=== PATIENT | female | born 1935 | race Caucasian/White ===

== ENCOUNTER 2016-09-19 08:54 | Day surgery (SDC) | payer MEDICARE, OTHER ==
[2016-09-12 12:22] LABS: HEMATOCRIT 45.7 % (36.0-47.0); HEMOGLOBIN 15.5 g/dL (12.0-15.5); HGB HCT DIFFERENCE 0.8; MEAN CORPUSCULAR HEMOGLOBIN 31.2 pg (27.0-33.4); MEAN CORPUSCULAR HGB CONC 33.9 g/dL (32.0-36.0); MEAN CORPUSCULAR VOLUME 92 fl (80-97); RED BLOOD COUNT 4.96 10^6/uL (3.72-5.28); RED CELL DISTRIBUTION WIDTH 14.2 % (11.5-14.0); WHITE BLOOD COUNT 5.9 10^3/uL (4.0-10.5)
[2016-09-12 12:46] LABS: ANION GAP 12 (5-19); BLOOD UREA NITROGEN 12 mg/dL (7-20); CALCIUM 9.6 mg/dL (8.4-10.2); CARBON DIOXIDE 24 mmol/L (22-30); CHLORIDE 106 mmol/L (98-107); CREATININE RESULT 0.58 mg/dL (0.52-1.25); GLUCOSE 92 mg/dL (75-110); POTASSIUM 4.4 mmol/L (3.6-5.0); SODIUM 142.3 mmol/L (137-145)
--- NOTE | 2016-09-12 13:40 | EKG REPORT ---
SEVERITY:- ABNORMAL ECG - SINUS RHYTHM NONSPECIFIC IVCD WITH LAD LEFT VENTRICULAR HYPERTROPHY : Confirmed by: Francisco Kyle MD 12-Sep-2016 13:40:17
[~2016-09-19 08:54] MED LIST: CEFAZOLIN 1 GM/D5W RTU 1 GM/50 ML RTUPB IV PRN; LACTATED RINGERS 1000 ML IV PRN; LIDOCAINE 0.5% INJ-PF (5 MG/ML) 50 ML SDV SUBCUT PRN; LIDOCAINE 1% INJ-PF (10 MG/ML) 30 ML SDV ONE
[2016-09-19] MEDS ORDERED: KETAMINE HCL INJ 500 MG/10 ML VIAL ONE (11:10)
[2016-09-19] MEDS ORDERED: PROPOFOL INJ 200 MG/20 ML VIAL IV ONE (11:11)
[2016-09-19] MEDS ORDERED: MIDAZOLAM 2 MG/2 ML INJ ONE (11:11)
[2016-09-19] MEDS ORDERED: MEPERIDINE HCL/PF INJ 25 MG/1 ML DISP.SYRIN IV PRN (12:13)
[2016-09-19] MEDS ORDERED: FENTANYL CITRATE INJ/PF 100 MCG/2 ML AMPUL IV PRN ×3 (12:13)
[2016-09-19] MEDS ORDERED: OXYCODONE-ACETAMINOPHEN 5-325 MG TABLET PO PRN ×2 (12:13)
[2016-09-19] MEDS ORDERED: MORPHINE SULFATE 10 MG/ML INJ IV PRN (12:13)
[2016-09-19] MEDS ORDERED: DIPHENHYDRAMINE HCL 50 MG/ML VIAL IV PRN (12:13)
[2016-09-19] MEDS ORDERED: PROMETHAZINE HCL INJ 25 MG/1 ML VIAL IV PRN ×2 (12:13)
[2016-09-19] MEDS ORDERED: MICROFIBRILLAR COLLAGEN 1 GM PACK ONE (12:22)
--- NOTE | 2016-09-19 12:52 | Operative Report ---
Operative Report DATE OF SURGERY: 09/19/16 PREOPERATIVE DIAGNOSIS: Mass, right breast, possible intraductal papilloma POSTOPERATIVE DIAGNOSIS: Same OPERATION: 1. Focused ultrasound directed open right breast biopsy. 2. Excision of additional fibrotic tissue right breast SURGEON: TREV DAVILA 1[employer] HELPER: MIYA DODSON ANESTHESIA: LMAC TISSUE REMOVED OR ALTERED: Right breast mass 2 COMPLICATIONS: None ESTIMATED BLOOD LOSS: scant INTRAOPERATIVE FINDINGS: See below PROCEDURE: The patient was seen in the preoperative holding area with her right breast was marked. She was then taken to the operating room where she was placed in the supine position right arm abducted white breast exposed, prepped and draped in a sterile fashion Surgical plan on surgical time out conducted. The right breast was scanned with the verbal frequency linear transducer. An area of hypoechogenicity with a central density was identified at the 10:30 position area will abort her right breast. We felt that this was the target tissue. The skin was anesthetized with 1% lidocaine plain. A radial incision was made approximately 4 cm in length attending across the areolar border at the 10:30 position. Mass of breast tissue was excised using a combination of sharp and electrocautery dissection. Ultrasound was used as a guide. The mass consisted of dilated duct, and some granular tissue distally. We terminated the resection centrally approximately 2 cm from the nipple . The mass was opened in 2 areas with a #[address] Hernández. 2 sutures were placed one long silk in the lateral position and a short silk suture in the superior position for orientation. The specimen was sent to pathology for permanent analysis Section inspection of the cavity revealed a fibrotic area laterally. A small wedge of tissue approximately 2 x 2 centimeters was excised with electrocautery and this was sent for frozen section to ensure no evidence of malignancy. Analysis by Dr. Lucero suggested fibrocystic disease. We felt the operation was complete. Sponge count correct. Hemostasis was achieved, and moist Avitene was placed into the recesses of the wound. The wound closed with 3-0 Vicryl, Dermabond glue and a compression dressing applied. Patient tolerated procedure well and taken to recovery in stable condition. The physician research lab assistant, Ms. Dodson, provided assistance during this case by: retracting tissue, instillation of local anesthesia and closure of skin incisions.
--- NOTE | 2016-09-19 12:56 | PDOC DISCHARGE SUMMARY ---
Discharge Summary (SDC) - Discharge Final Diagnosis: Right breast mass excision Date of Surgery: 09/19/16 Discharge Date: 09/19/16 Condition: Stable Forms: ASU Anesthesia D/C Instruction, Discharge POC-Surgical Service Treatment or Instructions: [facility] [address] [place], [place] [address] Care Instructions Following Your Breast Mass Excision Activities: Resume normal activities when you feel comfortable. It is best to remain as active as possible to speed your recovery. It is common to experience some fatigue after surgery and you may find that short naps are helpful. Avoid strenuous activity such as weight lifting, tennis, etc at your surgical site for two weeks. Perform gentle arm exercises daily and do not favor your operative arm to due increased risk of mobility issues postoperatively. No driving for 7 days after surgery. Do not drive if you are taking pain medication other than Tylenol or Ibuprofen. No swimming, tub baths or soaking in a hot tub for 4 weeks. There are no dietary restrictions. Do not smoke as this impairs wound healing. Surgical Site care: Remove your dressing 48 hours after surgery. Leave skin glue in place. You may shower after removing the dressing to include washing the wound with soap and water using your hands. Do not scrub the incision. Pat the area dry with a towel. You do not need to recover the wound although some patients find that they feel more comfortable using a light dressing for a few days to absorb any minimal drainage which may occur. Many patients also find that keeping a dressing around the drain exit site is helpful to absorb any drainage which may leak around the tubing. If you use a dressing in this manner change it at least every day. Do not use heating pad or apply an ice pack to the operative site. You may apply deodorant if you are careful to avoid getting it on the wound itself. Medications: Take Motrin (ibuprofen) 600 mg to 800 mg every 8 hours around the clock. You may taper this medication as you experience less pain. Take narcotic pain control such as Tylenol #3 or Percocet one to tablets every six hours as needed for breakthrough pain. Do not take over the counter Tylenol if you are taking either Tylenol #3 or Percocet. Again, you cannot drive while taking narcotic pain medication. Resume all of your normal prescription medications after your surgery unless instructed otherwise. You may experience constipation after surgery while taking pain medications. If using a narcotic on a regular basis, take a stool softener such as Colace twice a day. It is helpful to stay hydrated by drinking lots of fluids. Walking is also helpful and is good exercise after surgery. If you need extra help, use Milk of Magnesia according to the directions on the package. Follow-up: Call our office at to make a follow-up appointment in 10-14 days. Your doctor will call to discuss the pathology report with you as soon as it is available. Concerns: If you had a sentinel lymph node biopsy with your mastectomy, your urine may have a greenish discoloration. This is normal and will resolve as the blue dye slowly leaves your system. If you notice significant leakage around the drains , this is not normal. The drains may be clogged. Please call our office to come in immediately for the drains to be checked. Some bruising may occur and will go away over time. If you have a fever of 101.5 or greater, chills, redness at the incision site, excessive drainage from your wound or severe pain not relieved by pain medication, call your doctor. A physician is available 24 hours a day 7 days a week in addition to regular office hours. If problems arise after normal office hours please call the hospital at . Please call if you have any questions or concerns. Prescriptions: Acetaminophen with Codeine [Tylenol #3 Tablet] 1 each PO Q6HP PRN #15 tablet PRN Reason: Referrals: TREV DAVILA MD [ACTIVE STAFF] - Discharge Activity: Activity As Tolerated Report the Following to Your Physician Immediately: Fever over 101 Degrees, Unusual Bleeding, Redness, Swelling, Warmth, Drainage-Foul Smelling
[2016-09-19 14:30] VITALS: BP 137/78
== END 2016-09-19 14:45 | disposition home or self-care (01) ==
LOC: OROUT 08:54
PROVIDERS: ATTEND Surgery
PROC: 0HBT0ZX Excision of Right Breast, Open Approach, Diagnostic (ICD-10-PCS; principal; 2016-09-19 11:00)
DX: C50.911 Malignant neoplasm of unspecified site of right female breast (principal); M19.90 Unspecified osteoarthritis, unspecified site; Z96.642 Presence of left artificial hip joint; E55.9 Vitamin D deficiency, unspecified; Z96.653 Presence of artificial knee joint, bilateral; E78.00 Pure hypercholesterolemia, unspecified; Z86.79 Personal history of other diseases of the circulatory system; Z87.891 Personal history of nicotine dependence; Z88.8 Allergy status to other drugs, medicaments and biological substances; Z98.1 Arthrodesis status
CPT/HCPCS: 93005; 36415; 85027; 80048; 88342 ×2; 88341 ×2; 88307 ×2; 93010; 19101; J2250; J0690; J3490 ×3; J2704; 400

== ENCOUNTER 2016-11-28 07:51 | Inpatient (IN) | payer MEDICARE, OTHER ==
[2016-10-31 10:17] LABS: HEMATOCRIT 46.3 % (36.0-47.0); HEMOGLOBIN 15.6 g/dL (12.0-15.5); HGB HCT DIFFERENCE 0.5; MEAN CORPUSCULAR HEMOGLOBIN 31.1 pg (27.0-33.4); MEAN CORPUSCULAR HGB CONC 33.6 g/dL (32.0-36.0); MEAN CORPUSCULAR VOLUME 93 fl (80-97); RED CELL DISTRIBUTION WIDTH 13.8 % (11.5-14.0); WHITE BLOOD COUNT 5.1 10^3/uL (4.0-10.5)
[2016-10-31 10:43] LABS: ANION GAP 9 (5-19); BLOOD UREA NITROGEN 16 mg/dL (7-20); CALCIUM 9.5 mg/dL (8.4-10.2); CARBON DIOXIDE 26 mmol/L (22-30); CHLORIDE 106 mmol/L (98-107); CREATININE RESULT 0.64 mg/dL (0.52-1.25); GLUCOSE 107 mg/dL (75-110); POTASSIUM 4.4 mmol/L (3.6-5.0); SODIUM 141.3 mmol/L (137-145)
--- NOTE | 2016-10-31 13:38 | EKG REPORT ---
SEVERITY:- ABNORMAL ECG - SINUS RHYTHM NONSPECIFIC IVCD WITH LAD LEFT VENTRICULAR HYPERTROPHY : Confirmed by: Joanne Mcgraw 31-Oct-2016 13:37:32
[~2016-11-28 07:51] MED LIST changes: -LIDOCAINE 1% INJ-PF (10 MG/ML) 30 ML SDV ONE
[2016-11-28] MEDS ORDERED: KETOROLAC TROMETHAMINE 60 MG/2 ML SDV ONE (08:32)
[2016-11-28] MEDS ORDERED: ONDANSETRON HCL INJ/PF 4 MG/2 ML SDV ONE (08:32)
[2016-11-28] MEDS ORDERED: LIDOCAINE 2% INJ-PF (20 MG/ML) 10 ML AMPUL ONE (08:32)
[2016-11-28] MEDS ORDERED: SUCCINYLCHOLINE CHLORIDE INJ 200 MG/10 ML VIAL ONE (08:32)
[2016-11-28] MEDS ORDERED: DEXAMETHASONE SOD PHOSPHATE INJ 4 MG/1 ML VIAL ONE (08:32)
[2016-11-28] MEDS ORDERED: LIDOCAINE 1%/EPINEPHRINE INJ 20 ML VIAL ONE ×2 (10:30→14:37)
[2016-11-28] MEDS ORDERED: MICROFIBRILLAR COLLAGEN 1 GM PACK ONE ×2 (10:30→12:08)
[2016-11-28] MEDS ORDERED: MIDAZOLAM 2 MG/2 ML INJ ONE (12:06)
[2016-11-28] MEDS ORDERED: FENTANYL CITRATE INJ/PF 250 MCG/5 ML AMPULE ONE (12:06)
[2016-11-28] MEDS ORDERED: PROPOFOL INJ 200 MG/20 ML VIAL IV ONE (12:07)
[2016-11-28] MEDS ORDERED: MORPHINE SULFATE 10 MG/ML INJ ONE (12:07)
[2016-11-28] MEDS ORDERED: IBUPROFEN INJ 800 MG/8 ML VIAL IV ONE (12:07)
[2016-11-28] MEDS ORDERED: ACETAMINOPHEN 100 ML IV ONE (12:07)
[2016-11-28] MEDS ORDERED: PROMETHAZINE HCL INJ 25 MG/1 ML VIAL IV PRN ×2 (12:54)
[2016-11-28] MEDS ORDERED: FENTANYL CITRATE INJ/PF 100 MCG/2 ML AMPUL IV PRN ×3 (12:54)
[2016-11-28] MEDS ORDERED: DIPHENHYDRAMINE HCL 50 MG/ML VIAL IV PRN (12:54)
[2016-11-28] MEDS ORDERED: OXYCODONE-ACETAMINOPHEN 5-325 MG TABLET PO PRN ×3 (12:54→14:02)
[2016-11-28] MEDS ORDERED: MORPHINE SULFATE 10 MG/ML INJ IV PRN ×2 (12:54→14:02)
[2016-11-28] MEDS ORDERED: MEPERIDINE HCL/PF INJ 25 MG/1 ML DISP.SYRIN IV PRN (12:54)
[2016-11-28] MEDS ORDERED: RINGERS SOLUTION,LACTATED 1,000 ML IV PRN (14:02)
[2016-11-28] MEDS ORDERED: ONDANSETRON HCL INJ/PF 4 MG/2 ML SDV IV PRN (14:02)
[2016-11-28] MEDS ORDERED: DOCUSATE SODIUM 100 MG CAPSULE PO PRN (14:05)
--- NOTE | 2016-11-28 14:18 | OPERATIVE REPORT E ---
Operative Report NAME: ESTELITA QUINONES : 1935 AGE: 81Y DATE OF SURGERY: 11/28/2016 ROOM: PREOPERATIVE DIAGNOSES: 1. 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 2. Bilateral nipple discharge. POSTOPERATIVE DIAGNOSES: 1. 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 2. Bilateral nipple discharge. PROCEDURE: Bilateral mastectomies with chest wall drain placement. SURGEON: TREV DAVILA M.D. CVIR TECH: MOY Robins ANESTHESIA: General via endotracheal tube. COMPLICATIONS: None. ESTIMATED BLOOD LOSS: 75 mL. DRAINS: One large Clayton-Bacon on the right chest wall and a large Aurelio on the left. FINDINGS: See below. SUMMARY OF PROCEDURE: The patient was brought from the preop holding area to the main operating room where general anesthesia was induced. Arms were abducted, patient placed in the reversed Trendelenburg position, and markings made on the chest wall for bilateral mastectomies. We approached the right breast first which had known multifocal invasive carcinoma. A #10 blade was used to incise the skin in an elliptical fashion around the areolar complex. Superior and inferior skin flaps were raised to the appropriate thickness. The right breast was taken off the pectoralis muscle from the subclavicular region medially to the medial border of the pectoralis major muscle and inferiorly down to the serratus anterior muscle. The tail of Madhu was taken with the specimen as a unit. We did not perform axillary node sampling. Skin edges were trimmed with James scissors, large Clayton-Bacon drain placed in the right inframammary crease and secured to the skin with 2-0 Prolene suture and the skin edges approximated with 2-0 Vicryl suture and skin glue used to close the skin incision. The exact procedure was performed on the left side, except a Aurelio drain was placed in an inframammary fold. The patient tolerated the procedure well, extubated, and taken to recovery room in stable condition. DICTATING PHYSICIAN: TREV DAVILA M.D. [id number] PHY#: [id number] ID: [id number] JOB#: [id number] ACCT: [id number] cc:TREV DAVILA M.D. >
[2016-11-28] MEDS ORDERED: MEPERIDINE HCL/PF INJ 25 MG/1 ML DISP.SYRIN ONE (14:37)
[2016-11-28] MEDS ORDERED: FENTANYL CITRATE INJ/PF 100 MCG/2 ML AMPUL ONE (14:49)
[2016-11-29] MEDS ORDERED: MORPHINE SULFATE 10 MG/ML INJ IV PRN ×2 (10:59→15:00)
[2016-11-29] MEDS ORDERED: ONDANSETRON HCL INJ/PF 4 MG/2 ML SDV IV PRN ×2 (10:59→15:01)
--- NOTE | 2016-11-29 11:17 | PDOC PROGRESS REPORT ---
Subjective Progress Note for:: 11/29/16 Subjective:: Patient got up on her own, has voided. Some pain in her shoulders. Physical Exam Vital Signs: Temp Pulse Resp BP Pulse Ox 98.6 F 75 17 125/42 L 97 11/29/16 07:43 11/29/16 07:43 11/29/16 07:43 11/29/16 07:43 11/29/16 07:43 Intake & Output 11/28/16 11/29/16 11/30/16 06:59 06:59 06:59 Intake Total 1470 Output Total 1120 Balance 350 Weight 80 kg General appearance: PRESENT: no acute distress Respiratory exam: PRESENT: other - Bilateral mastectomy incisions satisfactorily ; drains with serosanguineous output. Severe bruising to superior flaps bilaterally Results Laboratory Results: 10/31/16 09:13 10/31/16 09:13 Assessment & Plan - Diagnosis (1) Carcinoma of right breast Is this a current diagnosis for this admission?: YesPlan: Status post bilateral mastectomy drain placement, postoperative day 1, no complications thus far Plan: 1. Hep-Lock IV, advance diet 2. We will get occupational therapy involved in exercising upper extremity 3. I spoke with discharge planning about patient's wish for short-term skilled facility post discharge from hospital and whether that is a viable option.
[2016-11-29] MEDS ORDERED: DOCUSATE SODIUM 100 MG CAPSULE PO PRN (15:00)
[2016-11-29] MEDS ORDERED: OXYCODONE-ACETAMINOPHEN 5-325 MG TABLET PO PRN (15:01)
[2016-11-29] MEDS ORDERED: RINGERS SOLUTION,LACTATED 1,000 ML IV PRN (15:03)
[2016-11-30 10:05] VITALS: BP 141/49
--- NOTE | 2016-12-04 07:03 | DISCHARGE SUMMARY E ---
Discharge Summary NAME: ESTELITA QUINONES : 1935 AGE: 81Y ADMITTED: 11/29/2016 DISCHARGED: 11/30/2016 REASON FOR ADMISSION: Right breast carcinoma. SUMMARY OF HOSPITALIZATION: The patient is an 81-year-old white female with a diagnosis of bilateral nipple discharge and right breast carcinoma status post open right breast biopsy. She was brought in to ambulatory surgery for bilateral mastectomy with drain placement. The procedure was performed, dictated separately. Postoperatively, the patient did well, had no complications. Discharge planning was involving with coordinating home health on an outpatient basis. 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 DISPOSITION: The patient was discharged home to the care of her friend. She will follow up with Dr. Lyn in approximately 1 week. She has been instructed on drain care. Prescription for pain medication has been provided. DICTATING PHYSICIAN: TREV LYN M.D. [id number] Y#: [id number] ID: [id number] JOB#: [id number] ACCT: [id number] cc:TREV LYN M.D. >
== END 2016-11-30 11:25 | disposition home health service (06) | DRG 583 ==
LOC: OROUT 07:51 → 4N 15:31 → OROUT 11-29 13:42
PROVIDERS: ADMIT Surgery; ATTEND Surgery
PROC: 0W9800Z Drainage of Chest Wall with Drainage Device, Open Approach (ICD-10-PCS; 2016-11-28)
PROC: 0HTV0ZZ Resection of Bilateral Breast, Open Approach (ICD-10-PCS; principal; 2016-11-28 10:30)
DX: C50.911 Malignant neoplasm of unspecified site of right female breast (principal); N64.52 Nipple discharge; I10 Essential (primary) hypertension; E78.00 Pure hypercholesterolemia, unspecified; M19.90 Unspecified osteoarthritis, unspecified site; Z96.653 Presence of artificial knee joint, bilateral; Z96.642 Presence of left artificial hip joint; Z87.891 Personal history of nicotine dependence; Z86.12 Personal history of poliomyelitis; Z86.010 Personal history of colon polyps; Z17.0 Estrogen receptor positive status [ER+]
CPT/HCPCS: 36415; 400; 80048; 85027; 88307; 93005; 93010; J0131; J0330; J0690; J1100; J1741; J1885; J2175; J2250; J2270; J2405; J2704; J3010; J3490

== ENCOUNTER → 2017-02-11 | Outpatient (CLI) | payer MEDICARE, OTHER ==
--- NOTE | 2017-02-11 10:48 | WOMENS IMAGING REPORT ---
EXAM DESCRIPTION: BONE DENSITY HIP/SPINE COMPLETED DATE/TIME: 02/11/2017 8:51 am REASON FOR STUDY: OSTEOPROSIS; M81.0 M81.0 AGE-RELATED OSTEOPOROSIS W/O CURRENT PATHOLOGICAL FRAC COMPARISON: None. TECHNIQUE: Dual-Energy X-ray Absorptiometry (DEXA) of the AP Spine and Hip. LIMITATIONS: None. FINDINGS: LUMBAR SPINE: The bone mineral density (BMD) measured from L1-L4 in the AP projection correlates with a T-score of 1.9, which is normal as defined by the World Health Organization. HIP: The bone mineral density (BMD) measured in the left hip correlates with a T-score of -2.7, which is o steoporosis as defined by the World Health Organization. IMPRESSION: 1. LUMBAR SPINE: Normal 2. HIP: Osteoporosis COMMENT: The World Health Organization defines low BMD as follows: T-score: Normal: Greater than -1.0 Osteopenia: Between -1.0 and -2.5 Osteoporosis: Less than -2.5 without fractures Established osteoporosis: Less than -2.5 with fractures In general, you may wish to consider: Diagnosis Treatment Follow-up DEXA Normal BMD Prevention 2-3 years Osteopenia Prevention/Therapy 1-2 years Osteoporosis Therapy Yearly TECHNICAL DOCUMENTATION: JOB ID: [id number] [employer]- All Rights Reserved
== END ==
LOC: WI 08:48
PROVIDERS: ATTEND Internal Medicine
DX: M81.0 Age-related osteoporosis without current pathological fracture (principal)
CPT/HCPCS: 77080

== ENCOUNTER 2017-09-08 16:40 | Emergency (ER) | payer OTHER, MEDICARE ==
[2017-09-08] MEDS ORDERED: MORPHINE SULFATE 10 MG/ML INJ IM ONE (19:04)
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
[2017-09-08 22:47] VITALS: BP 130/64
== END 2017-09-08 22:45 | disposition home or self-care (01) ==
LOC: ER 16:40
DX: S10.91XA Abrasion of unspecified part of neck, initial encounter (principal); S20.212A Contusion of left front wall of thorax, initial encounter; R06.02 Shortness of breath; M25.561 Pain in right knee; V89.2XXA Person injured in unspecified motor-vehicle accident, traffic, initial encounter; E78.00 Pure hypercholesterolemia, unspecified; Z90.49 Acquired absence of other specified parts of digestive tract; Z90.710 Acquired absence of both cervix and uterus
CPT/HCPCS: 99284; 96372; 73564; 71101; 70450; 71250; 72125; J2270

== ENCOUNTER → 2019-02-13 | Outpatient (CLI) | payer MEDICARE, OTHER ==
--- NOTE | 2019-02-13 08:42 | WOMENS IMAGING REPORT ---
EXAM DESCRIPTION: BONE DENSITY HIP/SPINE COMPLETED DATE/TIME: 02/13/2019 8:21 am REASON FOR STUDY: M81.8 OTHER OSTEOPOROSIS W/O CURRENT PATHOLOGICAL FRACTURE M81.8 OTHER OSTEOPOROS IS WITHOUT CURRENT PATHOLOGICAL FRACTU COMPARISON: 02/11/2017 TECHNIQUE: Dual-Energy X-ray Absorptiometry (DEXA) of the AP Spine and Hip. LIMITATIONS: None. FINDINGS: LUMBAR SPINE: The bone mineral density (BMD) measured from L1-L4 in the AP projection correlates with a T-score of 2.6, which is normal as defined by the World Health Organization. HIP: The bone mineral density (BMD) measured in the left hip correlates with a T-score of -2.3, which is o steopenia as defined by the World Health Organization. IMPRESSION: 1. LUMBAR SPINE: NORMAL. Stable from prior study. 2. HIP: OSTEOPENIA. Slight improvement from prior study. COMMENT: The World Health Organization defines low BMD as follows: T-score: Normal: Greater than -1.0 Osteopenia: Between -1.0 and -2.5 Osteoporosis: Less than -2.5 without fractures Established osteoporosis: Less than -2.5 with fractures In general, you may wish to consider: Diagnosis Treatment Follow-up DEXA Normal BMD Prevention 2-3 years Osteopenia Prevention/Therapy 1-2 years Osteoporosis Therapy Yearly TECHNICAL DOCUMENTATION: JOB ID: [id number] [employer]- All Rights Reserved Reading location - IP/workstation name: [email or web address]
== END ==
LOC: WI 07:40
PROVIDERS: ATTEND Internal Medicine
DX: M81.8 Other osteoporosis without current pathological fracture (principal)
CPT/HCPCS: 77080

== ENCOUNTER → 2019-02-17 | Outpatient (CLI) | payer MEDICARE, OTHER ==
--- NOTE | 2019-02-17 12:38 | RADIOLOGY REPORT (SQ) ---
EXAM DESCRIPTION: MRI LT UPPER JOINT WITHOUT COMPLETED DATE/TIME: 02/17/2019 10:41 am REASON FOR STUDY: M75.122 COMPLETE ROTATR-CUFF TEAR/RUPTR OF LEFT SHOULDER, NOT TRAUMA M75.122 COMP LETE ROTATR-CUFF TEAR/RUPTR OF LEFT SHOULDER, NO COMPARISON: None. TECHNIQUE: Left shoulder images acquired and stored on PACS. Multiplanar imaging to include fat sens itive sequences such as T1, water sensitive sequences such as FST2/STIR, cartilage sensitive sequence s such as FSPD/gradient-echo sequences. LIMITATIONS: None. FINDINGS: BONE MARROW AND CORTEX: No worrisome bone lesions or marrow replacement. No occult fractur es. JOINT OR BURSAL EFFUSION: Large glenohumeral joint effusion with fluid tracking down the biceps tendo n sheath GLENO-HUMERAL ARTICULATION: [id number] osteoarthritis with bulky bony spurring along the inferior a spect of the humeral head. There are multiple intra-articular loose bodies in the axillary recess of the joint and along the subcoracoid recess ACROMION AND AC JOINT: Type 2 acromion with bulky acromioclavicular joint hypertrophy narrowing the subacromial space on sagittal image 9 and coronal image 9. ROTATOR CUFF AND INTERVAL: Diffuse thinning of the distal supra and infraspinatus tendons, with incre ased signal of the supraspinatus tendon at its attachment to the greater tuberosity. Subscapularis i s intact. No rotator interval tear. No rotator interval thickening to suggest adhesive capsulitis. LABRUM AND BICEPS LABRAL COMPLEX: Intra-articular long head biceps tendon is intact. Superior labr um is diffusely small. Remainder of the labrum is not seen PERIARTICULAR AND ADJACENT SOFT TISSUES: No masses or abnormal nodes. OTHER: No other significant finding. IMPRESSION: Advanced arthritis at the glenohumeral joint with jazc-[id number] appearance and multiple i ntra-articular loose Tendinopathy distal supra and infraspinatus tendons Acromioclavicular joint hypertrophy with narrowing of the subacromial space. TECHNICAL DOCUMENTATION: JOB ID: [id number] [employer]- All Rights Reserved Reading location - IP/workstation name: [email or web address]
== END ==
LOC: RAD 09:48
PROVIDERS: ATTEND Family Medicine
DX: M75.122 Complete rotator cuff tear or rupture of left shoulder, not specified as traumatic (principal); M19.012 Primary osteoarthritis, left shoulder

== ENCOUNTER → 2019-03-12 | Outpatient (CLI) | payer MEDICARE, OTHER ==
--- NOTE | 2019-03-12 13:35 | EKG REPORT ---
SEVERITY:- ABNORMAL ECG - SINUS RHYTHM LAD, CONSIDER LEFT ANTERIOR FASCICULAR BLOCK LA ABNORMALITY. : Confirmed by: Francisco Kyle MD 12-Mar-2019 13:34:52
--- NOTE | 2019-03-12 13:51 | RADIOLOGY REPORT (SQ) ---
EXAM DESCRIPTION: CHEST PA/LATERAL COMPLETED DATE/TIME: 03/12/2019 1:40 pm REASON FOR STUDY: PRE-OP COMPARISON: 12/01/2013 EXAM PARAMETERS: NUMBER OF VIEWS: two views TECHNIQUE: Digital Frontal and Lateral radiographic views of the chest acquired. RADIATION DOSE: NA LIMITATIONS: none FINDINGS: LUNGS AND PLEURA: No opacities, masses or pneumothorax. No pleural effusion. MEDIASTINUM AND HILAR STRUCTURES: No masses or contour abnormalities. HEART AND VASCULAR STRUCTURES: Heart normal size. No evidence for failure. BONES: No acute findings. HARDWARE: None in the chest. OTHER: No other significant finding. IMPRESSION: NO SIGNIFICANT RADIOGRAPHIC FINDING IN THE CHEST. TECHNICAL DOCUMENTATION: JOB ID: [id number] [employer]- All Rights Reserved Reading location - IP/workstation name: [email or web address]
[2019-03-12 14:02] LABS: ABSOLUTE EOSINOPHILS # (AUTO) 0.1 10^3/uL (0.0-0.6); ABSOLUTE LYMPHOCYTES (AUTO) 1.4 10^3/uL (0.5-4.7); ABSOLUTE MONOCYTES (AUTO) 0.6 10^3/uL (0.1-1.4); ABSOLUTE NEUT (AUTO) 3.8 10^3/uL (1.7-8.2); BASOPHILS % (AUTO) 0.7 % (0-2); EOSINOPHILS % (AUTO) 2.2 % (0-6); HEMATOCRIT 44.6 % (36.0-47.0); HEMOGLOBIN 15.2 g/dL (12.0-15.5); LYMPHOCYTES % (AUTO) 22.7 % (13-45); MEAN CORPUSCULAR HEMOGLOBIN 30.8 pg (27.0-33.4); MEAN CORPUSCULAR VOLUME 91 fl (80-97); MONOCYTES % (AUTO) 9.9 % (3-13); PLATELET COUNT 212 10^3/uL (150-450); RED BLOOD COUNT 4.92 10^6/uL (3.72-5.28); RED CELL DISTRIBUTION WIDTH 13.5 % (11.5-14.0); SEGMENTED NEUTROPHILS % (AUTO) 64.5 % (42-78); TOTAL CELLS COUNTED % (AUTO) 100 %
[2019-03-12 14:03] LABS: APPEARANCE,URINE CLOUDY; BILIRUBIN,URINE NEGATIVE (NEGATIVE); COLOR,URINE AMBER; GLUCOSE, URINE NEGATIVE (NEGATIVE); KETONES,URINE NEGATIVE (NEGATIVE); LEUKOCYTE ESTERASE,URINE NEGATIVE (NEGATIVE); NITRITE,URINE NEGATIVE (NEGATIVE); PROTEIN,URINE NEGATIVE (NEGATIVE); URINE SPECIFIC GRAVITY 1.018; UROBILINOGEN,URINE NEGATIVE mg/dL (<2.0)
[2019-03-12 14:24] LABS: ANION GAP 12 (5-19); BLOOD UREA NITROGEN 16 mg/dL (7-20); CALCIUM 9.5 mg/dL (8.4-10.2); CARBON DIOXIDE 24 mmol/L (22-30); CHLORIDE 104 mmol/L (98-107); GLUCOSE 108 mg/dL (75-110); POTASSIUM 4.4 mmol/L (3.6-5.0)
== END ==
LOC: OD 12:52
PROVIDERS: ATTEND Orthopaedic Surgery
DX: Z01.812 Encounter for preprocedural laboratory examination (principal); Z01.810 Encounter for preprocedural cardiovascular examination; Z01.811 Encounter for preprocedural respiratory examination
CPT/HCPCS: 36415; 71046; 80048; 81001; 85025; 93005; 93010

== ENCOUNTER 2019-04-06 06:36 | Inpatient (IN) | payer MEDICARE, OTHER ==
[~2019-04-06 06:36] MED LIST changes: +BUPIVACAINE INJ/PF LIPOSOME/PF 266 MG/20 ML SDV INJ PRN; -CEFAZOLIN 1 GM/D5W RTU 1 GM/50 ML RTUPB IV PRN; +CEFAZOLIN INJ 1 GM VIAL IV PRN; +CEFAZOLIN INJ 1 GM VIAL ONE; +IBUPROFEN 800 MG in NORMAL SALINE 250 ML IV PRN; +OXYCODONE HCL SR 10 MG TABLET PO ONE; +OXYCODONE HCL SR 10 MG TABLET PO PRN; +PANTOPRAZOLE SODIUM 20 MG TABLET.DR PO ONE; +PANTOPRAZOLE SODIUM 20 MG TABLET.DR PO PRN; +VANCOMYCIN HCL 1,000 MG in DEXTROSE 5%-WATER 250 ML IV PRN
[2019-04-06] MEDS ORDERED: DEXAMETHASONE SOD PHOSPHATE INJ 4 MG/1 ML VIAL ONE (06:39)
[2019-04-06] MEDS ORDERED: EPHEDRINE SULFATE INJ 50 MG/1 ML AMPULE ONE (06:39)
[2019-04-06] MEDS ORDERED: PROPOFOL INJ 200 MG/20 ML VIAL IV ONE (06:39)
[2019-04-06] MEDS ORDERED: ONDANSETRON HCL INJ/PF 4 MG/2 ML SDV ONE (06:39)
[2019-04-06] MEDS ORDERED: MIDAZOLAM 2 MG/2 ML INJ ONE (06:39)
[2019-04-06] MEDS ORDERED: FENTANYL CITRATE INJ/PF 100 MCG/2 ML AMPUL ONE ×2 (06:39→11:01)
[2019-04-06] MEDS ORDERED: LIDOCAINE 0.5% INJ-PF (5 MG/ML) 50 ML SDV ONE (06:43)
[2019-04-06] MEDS ORDERED: BUPIVACAINE HCL 0.25 % INJ/PF (2.5 MG/1 ML) 30 ML VIAL ONE (07:26)
[2019-04-06] MEDS ORDERED: BUPIVACAINE HCL 0.5%-EPI 1:200000 INJ/PF 30 ML VIAL ONE (08:29)
[2019-04-06] MEDS ORDERED: TRANEXAMIC ACID INJ/PF 1,000 MG/10 ML SDV ONE (08:59)
[2019-04-06] MEDS ORDERED: OXYCODONE-ACETAMINOPHEN 5-325 MG TABLET PO PRN (09:24)
[2019-04-06] MEDS ORDERED: MEPERIDINE HCL/PF INJ 25 MG/1 ML DISP.SYRIN IV PRN (09:24)
[2019-04-06] MEDS ORDERED: FENTANYL CITRATE INJ/PF 100 MCG/2 ML AMPUL IV PRN ×2 (09:24)
[2019-04-06] MEDS ORDERED: PROMETHAZINE HCL INJ 25 MG/1 ML VIAL IV PRN ×2 (09:24)
[2019-04-06] MEDS ORDERED: DIPHENHYDRAMINE HCL 50 MG/ML VIAL IV PRN (09:24)
[2019-04-06] MEDS ORDERED: MORPHINE SULFATE 10 MG/ML INJ IV PRN (09:24)
--- NOTE | 2019-04-06 10:28 | Operative Report ---
Operative Report DATE OF SURGERY: 04/06/19 PREOPERATIVE DIAGNOSIS: Left shoulder arthritis OPERATION: Left shoulder arthroplasty SURGEON: SHERIF VAUGHN ANESTHESIA: GA TISSUE REMOVED OR ALTERED: Humeral head to pathology ESTIMATED BLOOD LOSS: 25 PROCEDURE: Implants used: Travis reunion 52 mm glenoid [place] reunion size 14 modular humeral stem [place] reunion 52 x 23 mm eccentric humeral head With the patient in a beachchair position on the operative table left upper extremity and forequarter prepped and draped in sterile fashion. A standard deltopectoral approach the humerus was taken. The deltoid is retracted anteriorly and the underlying anterior shoulder capsule is exposed. The next layer proceeds up through the biceps tendon and subsequently a lesser tuberosity osteotomy was performed. This is developed and the underlying shoulder joint is exposed. The humeral shaft is reamed using hand cylindrical reamers until a 14 mm reamer is seated. Is subtotally broached until a 14 mm broach is seated. Next the glenoid is exposed. Soft tissue is cleared off the rim of the glenoid. A central PEG is placed into the glenoid and the glenoid face is reamed by hand. Subsequently glenoids prepared for a cemented 52 mm Travis reunion glenoid. This is subsequently cemented in place. Following adequate curing the cement the final 14 mm stem was impacted into position. Is trialed with a 52 mm humeral heads until a 23 mm eccentric head is used and felt to provide the best stability. This is now impacted into position. The wound is irrigated with pulse lavage and normal saline containing Betadine. The lesser tuberosity osteotomy is attempted to be repaired using FiberWire. The bone is of such poor quality vertically through the greater tuberosity that the suture pulled through this. Subsequently a soft tissue repair of the rotator cuff was performed. The remainder the wound is closed with interrupted Vicryl followed by Dermabond tape. A shoulder immobilizer was applied and the patient's return to the PACU in satisfactory condition.
[2019-04-06] MEDS ORDERED: ONDANSETRON 4 MG TAB.RAPDIS SL PRN (10:35)
[2019-04-06] MEDS ORDERED: BUPIVACAINE HCL 0.5%-EPI 1:200000 INJ/PF 30 ML VIAL INJ ONE (10:53)
[2019-04-06] MEDS: FENTANYL CITRATE INJ/PF 100 MCG/2 ML AMPUL IV PRN ×2 (11:02→11:16)
[2019-04-06] MEDS ORDERED: ACETAMINOPHEN 1,000 MG/100 ML RTUPB IV ONE (11:32)
[2019-04-06] MEDS: RINGERS SOLUTION,LACTATED 1,000 ML IV PRN ×2 (12:00→20:39)
[2019-04-06] MEDS ORDERED: ACETAMINOPHEN INJ/PF 1000 MG/100 ML SDV IV ONE (12:15)
[2019-04-06] MEDS: HYDROCODONE/ACETAMINOPHEN 5-325 MG TABLET PO PRN (15:03)
[2019-04-06] MEDS ORDERED: PHENYLEPHRINE HCL INJ/PF 10 MG/1 ML SDV ONE (15:27)
[2019-04-06] MEDS: ASPIRIN 81 MG TABLET, ENT COATED PO SCH (18:49)
[2019-04-06] MEDS ORDERED: VANCOMYCIN HCL 1,000 MG in DEXTROSE 5%-WATER 250 ML IV ONE (21:00)
[2019-04-07] MEDS: HYDROCODONE/ACETAMINOPHEN 5-325 MG TABLET PO PRN ×4 (03:15→21:59)
[2019-04-07 05:50] LABS: HEMATOCRIT 36.4 % (36.0-47.0); HEMOGLOBIN 12.4 g/dL (12.0-15.5); MEAN CORPUSCULAR HGB CONC 34.2 g/dL (32.0-36.0); MEAN CORPUSCULAR VOLUME 91 fl (80-97); PLATELET COUNT 190 10^3/uL (150-450); RED BLOOD COUNT 4.01 10^6/uL (3.72-5.28); RED CELL DISTRIBUTION WIDTH 13.9 % (11.5-14.0); WHITE BLOOD COUNT 10.7 10^3/uL (4.0-10.5)
[2019-04-07 06:07] LABS: BLOOD UREA NITROGEN 9 mg/dL (7-20); CALCIUM 8.4 mg/dL (8.4-10.2); GLUCOSE 136 mg/dL (75-110); POTASSIUM 4.2 mmol/L (3.6-5.0)
[2019-04-07 06:12] LABS: ANION GAP 5 (5-19); CARBON DIOXIDE 27 mmol/L (22-30); CHLORIDE 106 mmol/L (98-107)
--- NOTE | 2019-04-07 06:58 | PDOC PROGRESS REPORT ---
Subjective Progress Note for:: 04/07/19 Reason For Visit: LEFT SHOULDER ARTHRITIS 84-year-old white female now postop day 1 status post left shoulder replacement. Patient comfortable overnight. Physical Exam Vital Signs: Temp Pulse Resp BP Pulse Ox 36.7 C 88 19 129/58 H 94 04/07/19 00:01 04/07/19 00:01 04/07/19 00:01 04/07/19 00:01 04/07/19 00:01 Intake & Output 04/05/19 04/06/19 04/07/19 06:59 06:59 06:59 Intake Total 0 4196 Output Total 100 Balance 0 4096 Weight 83.8 kg Physical Exam: Overweight middle-aged white female lying flat in bed in minimal distress. Patient is alert, oriented, appropriate. General appearance: PRESENT: no acute distress, mild distress Head exam: PRESENT: normocephalic Respiratory exam: PRESENT: unlabored Cardiovascular exam: PRESENT: RRR Pulses: PRESENT: +1 pedal pulses bilateral Vascular exam: PRESENT: normal capillary refill GI/Abdominal exam: PRESENT: soft Rectal exam: PRESENT: deferred Extremities exam: PRESENT: other - Left shoulder dressing clean dry and intact. Distal neurovascular examination is intact. Neurological exam: PRESENT: alert, awake, oriented to person, oriented to place, oriented to time, oriented to situation. ABSENT: motor sensory deficit Psychiatric exam: PRESENT: appropriate affect, normal mood. ABSENT: homicidal ideation, suicidal ideation Skin exam: PRESENT: dry, intact, warm. ABSENT: cyanosis, rash Results Laboratory Results: 04/07/19 05:22 04/07/19 05:22 04/06/19 04/07/19 04/07/19 07:03 05:22 05:22 WBC 10.7 H RBC 4.01 Hgb 12.4 Hct 36.4 MCV 91 MCH 31.0 MCHC 34.2 RDW 13.9 Plt Count 190 Sodium 138.1 Potassium 4.2 Chloride 106 Carbon Dioxide 27 Anion Gap 5 BUN 9 Creatinine 0.50 L Est GFR ( Amer) > 60 Glucose 136 H Calcium 8.4 Blood Type O NEGATIVE Antibody Screen NEGATIVE Status: Imported from PACS Assessment & Plan - Diagnosis (1) Shoulder arthritis Is this a current diagnosis for this admission?: Yes Plan: 84-year-old white female status post left shoulder arthroplasty postop day 1 with no untoward events. X-ray was never completed yesterday has been reordered today. Patient be out of bed with physical therapy and work with occupational therapy. Anticipate discharge to assisted facility because of the patient's social situation. - Time Time Spent with patient: 15-24 minutes Anticipated discharge: SNF Within: when bed available
[2019-04-07] MEDS ORDERED: INFLUENZA QUAD (6MOS+) 2019-20 VAC 0.5 ML SYR IM ONE (08:00)
[2019-04-07] MEDS: CHOLECALCIFEROL (D3) 1,000 UNIT (25 MCG) TABLET PO SCH (09:41)
[2019-04-07] MEDS: CALCIUM CARBONATE 500 MG TABLET PO SCH (09:41)
[2019-04-07] MEDS: CYANOCOBALAMIN (VITAMIN B-12) 1,000 MCG TABLET PO SCH (09:42)
[2019-04-07] MEDS ORDERED: [UNRECOGNIZED DRUG - OTHER] PO SCH (10:00)
[2019-04-07] MEDS ORDERED: COPPER PO SCH (10:00)
[2019-04-07] MEDS ORDERED: VITC PO SCH (10:00)
[2019-04-07] MEDS ORDERED: LUTEIN PO SCH (10:00)
--- NOTE | 2019-04-07 13:04 | RADIOLOGY REPORT (SQ) ---
EXAM DESCRIPTION: SHOULDER LEFT 1 VIEW COMPLETED DATE/TIME: 04/07/2019 12:45 pm REASON FOR STUDY: POST OP M19.012 PRIMARY OSTEOARTHRITIS, LEFT SHOULDER COMPARISON: None. NUMBER OF VIEWS: One view. TECHNIQUE: AP image acquired of the left shoulder. LIMITATIONS: None. FINDINGS: Postoperative image of the left shoulder shows left shoulder arthroplasty in good position . IMPRESSION: Left shoulder arthroplasty. Refer to operative note for further information. TECHNICAL DOCUMENTATION: JOB ID: [id number] [employer]- All Rights Reserved Reading location - IP/workstation name: [email or web address]
[2019-04-07] MEDS: ASPIRIN 81 MG TABLET, ENT COATED PO SCH (17:20)
--- NOTE | 2019-04-08 07:09 | PDOC PROGRESS REPORT ---
Subjective Progress Note for:: 04/08/19 Reason For Visit: LEFT SHOULDER ARTHRITIS 84-year-old white female now postop day 2 status post left shoulder arthroplasty. Patient with minimal complaints overnight except that the room was cold Physical Exam Vital Signs: Temp Pulse Resp BP Pulse Ox 36.9 C 95 16 138/62 H 92 04/07/19 19:27 04/07/19 19:27 04/07/19 19:27 04/07/19 19:27 04/07/19 19:27 Intake & Output 04/07/19 04/08/19 04/09/19 06:59 06:59 06:59 Intake Total 4196 1626 Output Total 100 1550 Balance 4096 76 Weight 83.8 kg 84.5 kg Physical Exam: Overweight middle-aged white female lying in bed in no distress. Patient is alert, oriented, appropriate. General appearance: PRESENT: no acute distress, mild distress Head exam: PRESENT: normocephalic Respiratory exam: PRESENT: unlabored Cardiovascular exam: PRESENT: RRR Vascular exam: PRESENT: normal capillary refill GI/Abdominal exam: PRESENT: soft Rectal exam: PRESENT: deferred Extremities exam: PRESENT: other - Left upper extremity in a sling. Left shoulder dressing clean dry and intact. Neurovascular examination hand is intact. Neurological exam: PRESENT: alert, awake, oriented to person, oriented to place, oriented to time, oriented to situation. ABSENT: motor sensory deficit Psychiatric exam: PRESENT: appropriate affect, normal mood. ABSENT: homicidal ideation, suicidal ideation Skin exam: PRESENT: dry, intact, warm. ABSENT: cyanosis, rash Results Laboratory Results: 04/07/19 05:22 04/07/19 05:22 Impressions: Shoulder X-Ray 04/07/19 00:00 IMPRESSION: Left shoulder arthroplasty. Refer to operative note for further information. Status: Imported from PACS Assessment & Plan - Diagnosis (1) Shoulder arthritis Is this a current diagnosis for this admission?: Yes Plan: Patient can be out of bed ad kyleigh. [facility] - Time Time Spent with patient: 15-24 minutes Anticipated discharge: SNF Within: within 24 hours
[2019-04-08] MEDS: CALCIUM CARBONATE 500 MG TABLET PO SCH (09:52)
[2019-04-08] MEDS: CHOLECALCIFEROL (D3) 1,000 UNIT (25 MCG) TABLET PO SCH (09:52)
[2019-04-08] MEDS: CYANOCOBALAMIN (VITAMIN B-12) 1,000 MCG TABLET PO SCH (09:52)
[2019-04-08] MEDS: ASPIRIN 81 MG TABLET, ENT COATED PO SCH (17:12)
[2019-04-08] MEDS: HYDROCODONE/ACETAMINOPHEN 5-325 MG TABLET PO PRN ×2 (17:19→23:20)
--- NOTE | 2019-04-09 06:45 | PDOC PROGRESS REPORT ---
Subjective Progress Note for:: 04/09/19 Reason For Visit: LEFT SHOULDER ARTHRITIS 84-year-old white female now postop day 3 status post left shoulder arthroplasty. Patient continues to complain of discomfort but otherwise seems to be doing well. Physical Exam Vital Signs: Temp Pulse Resp BP Pulse Ox 36.8 C 87 17 139/67 H 95 04/08/19 23:45 04/08/19 23:45 04/08/19 23:45 04/08/19 23:45 04/08/19 23:45 Intake & Output 04/07/19 04/08/19 04/09/19 06:59 06:59 06:59 Intake Total 4196 1626 1305 Output Total 100 1550 1425 Balance 4096 76 -120 Weight 83.8 kg 84.5 kg 82.1 kg Physical Exam: Overweight white female lying in bed with a shoulder immobilizer on the left upper extremity. General appearance: PRESENT: no acute distress, obese Head exam: PRESENT: normocephalic Respiratory exam: PRESENT: unlabored Cardiovascular exam: PRESENT: RRR Vascular exam: PRESENT: normal capillary refill Extremities exam: PRESENT: other - Left upper extremity dressing clean dry and intact. Neurovascular examination hand is intact. Neurological exam: PRESENT: alert, awake, oriented to person, oriented to place, oriented to time, oriented to situation. ABSENT: motor sensory deficit Psychiatric exam: PRESENT: appropriate affect, normal mood. ABSENT: homicidal ideation, suicidal ideation Skin exam: PRESENT: dry, intact, warm. ABSENT: cyanosis, rash Results Laboratory Results: 04/07/19 05:22 04/07/19 05:22 Impressions: Shoulder X-Ray 04/07/19 00:00 IMPRESSION: Left shoulder arthroplasty. Refer to operative note for further information. Status: Imported from PACS Assessment & Plan - Diagnosis (1) Shoulder arthritis Is this a current diagnosis for this admission?: Yes Plan: 84-year-old white female now postop day 3 status post left shoulder replacement. Preoperative plan was for discharge to a longterm facility because of the patient's solitary living situation. There is now a financial ross that has arisen which precludes the patient being discharged to longterm facility. Why this was not recognized preoperatively is not clear. Patient will continue with ongoing hospitalization until issues have been resolved. - Time Time Spent with patient: 15-24 minutes Anticipated discharge: SNF Within: when bed available
[2019-04-09] MEDS: CALCIUM CARBONATE 500 MG TABLET PO SCH (11:17)
[2019-04-09] MEDS: CYANOCOBALAMIN (VITAMIN B-12) 1,000 MCG TABLET PO SCH (11:17)
[2019-04-09] MEDS: CHOLECALCIFEROL (D3) 1,000 UNIT (25 MCG) TABLET PO SCH (11:17)
--- NOTE | 2019-04-09 12:11 | PDOC TRANSFER SUMMARY ---
Impression - Admit/DC Date/PCP Admission Date/Primary Care Provider: 04/06/19 06:36 RITA SANDY MD Discharge Date: 04/09/19 - Discharge Diagnosis (1) Shoulder arthritis Is this a current diagnosis for this admission?: Yes - Additional Information Resuscitation Status: Full Code Discharge Diet: Regular Discharge Activity: Balance Activity w/Rest, No tub bath Referrals: [facility] [Outside] SHERIF VAUGHN MD [ACTIVE STAFF] - 04/21/19 2:45 pm Home Medications: Calcium Carbonate [Calcium] 500 mg PO DAILY 04/06/19 Cholecalciferol (Vitamin D3) [Vitamin D3 1000 Unit Tablet] 2,000 unit PO DAILY 04/06/19 Cyanocobalamin (Vitamin B-12) [Vitamin B-12 1000 Mcg Tablet] 1 tab PO DAILY 04/06/19 Vitc/E/Zn/Copper/Lutein/Zeaxan [Icaps Areds2 Softgel] 1 each PO DAILY 04/06/19 History of Present Illiness History of Present Illness: ESTELITA QUINONES is a 84 year old female 84-year-old white female with progressive left shoulder pain and functional disability secondary osteoarthritis. Patient admitted for elective left shoulder arthroplasty. Hospital Course Hospital Course: Patient is admitted through the operating room she undergoes unconjugated left shoulder replacement. She was returned to floor in satisfactory condition. Patient complains of back of left shoulder pain but otherwise continues to do well throughout her hospitalization. There is no postoperative issues that arise. Physical Exam Vital Signs: Temp Pulse Resp BP Pulse Ox 36.8 C 87 17 139/67 H 95 04/08/19 23:45 04/08/19 23:45 04/08/19 23:45 04/08/19 23:45 04/08/19 23:45 Intake & Output 04/08/19 04/09/19 04/10/19 06:59 06:59 06:59 Intake Total 1626 1305 Output Total 1550 1425 Balance 76 -120 Weight 84.5 kg 82.1 kg General appearance: PRESENT: no acute distress Head exam: PRESENT: normocephalic Respiratory exam: PRESENT: unlabored Cardiovascular exam: PRESENT: RRR GI/Abdominal exam: PRESENT: soft Rectal exam: PRESENT: deferred Musculoskeletal exam: PRESENT: other - Left shoulder dressing clean dry and intact. Shoulder sling in place. Distal neurovascular examination hand is intact. Results Laboratory Results: WBC 10.7 10^3/uL (4.0-10.5) H 04/07/19 05:22 RBC 4.01 10^6/uL (3.72-5.28) 04/07/19 05:22 Hgb 12.4 g/dL (12.0-15.5) 04/07/19 05:22 Hct 36.4 % (36.0-47.0) 04/07/19 05:22 MCV 91 fl (80-97) 04/07/19 05:22 MCH 31.0 pg (27.0-33.4) 04/07/19 05:22 MCHC 34.2 g/dL (32.0-36.0) 04/07/19 05:22 RDW 13.9 % (11.5-14.0) 04/07/19 05:22 Plt Count 190 10^3/uL (150-450) 04/07/19 05:22 Sodium 138.1 mmol/L (137-145) 04/07/19 05:22 Potassium 4.2 mmol/L (3.6-5.0) 04/07/19 05:22 Chloride 106 mmol/L (98-107) 04/07/19 05:22 Carbon Dioxide 27 mmol/L (22-30) 04/07/19 05:22 Anion Gap 5 (5-19) 04/07/19 05:22 BUN 9 mg/dL (7-20) 04/07/19 05:22 Creatinine 0.50 mg/dL (0.52-1.25) L 04/07/19 05:22 Est GFR ( Amer) > 60 (>60) 04/07/19 05:22 Est GFR (MDRD) Non-Af > 60 (>60) 04/07/19 05:22 Glucose 136 mg/dL (75-110) H 04/07/19 05:22 Calcium 8.4 mg/dL (8.4-10.2) 04/07/19 05:22 Blood Type O NEGATIVE 04/06/19 07:03 Antibody Screen NEGATIVE 04/06/19 07:03 Impressions: Shoulder X-Ray 04/07/19 00:00 IMPRESSION: Left shoulder arthroplasty. Refer to operative note for further information. Plan Plan of Treatment: Transferred to a residential facility on ambulation weightbearing as tolerated basis. Physical therapy and occupational therapy for circumduction gentle active range of motion of the left shoulder. Follow up with Dr. Vaughn and [facility] for surgery in 2 weeks for staple removal. Stroke Is this a Stroke Patient?: No Stroke Pt being discharged on Anti-thrombolytic therapy?: Yes Acute Heart Failure - Is this a Heart Failure Patient?: No
[2019-04-09 13:19] VITALS: BP 145/71
== END 2019-04-09 15:54 | DRG 483 ==
LOC: INOR 06:36 → 4N 11:57
PROVIDERS: ADMIT Orthopaedic Surgery; ATTEND Orthopaedic Surgery
PROC: 0RRK0JZ Replacement of Left Shoulder Joint with Synthetic Substitute, Open Approach (ICD-10-PCS; principal; 2019-04-06 08:45)
DX: M19.012 Primary osteoarthritis, left shoulder (principal); E66.9 Obesity, unspecified; Z79.899 Other long term (current) drug therapy; Z87.891 Personal history of nicotine dependence; Z96.642 Presence of left artificial hip joint; Z96.653 Presence of artificial knee joint, bilateral; Z90.10 Acquired absence of unspecified breast and nipple; Z86.12 Personal history of poliomyelitis; Z90.13 Acquired absence of bilateral breasts and nipples
CPT/HCPCS: 01638; 36415; 80048; 85027; 86850; 86900; 86901; C1713; C1776; J0131; J0690; J1100; J1741; J2250; J2370; J2405; J2704; J3010; J3370; J3490; J7050; J7060; J7120; L3650; S0119

== ENCOUNTER 2019-06-24 11:25 | Emergency (ER) | payer MEDICARE, OTHER ==
--- NOTE | 2019-06-24 12:14 | ER Document Report ---
ED Hip Pain/Injury - General Chief Complaint: Hip Pain Stated Complaint: HIP PAIN Time Seen by Provider: 06/24/19 11:47 Primary Care Provider: ANA PALOMO MD [Primary Care Provider] - Follow up as needed Information source: Patient TRAVEL OUTSIDE OF THE [place] IN LAST 30 DAYS: No - HPI Patient complains to provider of: Pain. No: Injury, Flank, Hip, Pelvis, Thigh, Other Occurred: Yesterday Onset/Duration: Gradual Quality of pain: Achy. denies: No pain, Burning, Cramping, Dull, Fullness, Pressure, Sharp, Stabbing, Throbbing, Other Context: denies: Cannot remember, Fainted, Fell/lost balance, Fell/slipped, Fell/tripped, No trauma, Other Symptoms prior to fall: denies: None, Chest pain, Cough, Dizzy/light-headed, Fever/chills/sweats, GI bleed, Headache, Rapid heart rate, Seizure, Vomiting/diarrhea, Other Symptoms since fall: denies: None, Chest pain, Cough, Dizzy/light-headed, Fever/chills/sweats, GI bleed, Headache, Rapid heart rate, Seizure, Vomiting/diarrhea, Other - Related Data Allergies/Adverse Reactions: No Known Allergies Allergy (Verified 04/06/19 07:23) Past Medical History - Social History Smoking Status: Unknown if Ever Smoked Family History: Reviewed & Not Pertinent, DM Patient has suicidal ideation: No Patient has homicidal ideation: No - Past Medical History Cardiac Medical History: Reports: Hx Hypercholesterolemia Denies: Hx Atrial Fibrillation, Hx Congestive Heart Failure, Hx Coronary Artery Disease, Hx Heart Attack, Hx Hypertension, Hx Peripheral Vascular Disease, Hx Pulmonary Embolism, Hx Heart Murmur Pulmonary Medical History: Reports: Hx Pneumonia - 15yrs ago Denies: Hx Asthma, Hx Bronchitis, Hx COPD, Hx Respiratory Failure, Hx Sleep Apnea, Hx Tuberculosis Neurological Medical History: Denies: Hx Cerebrovascular Accident, Hx Seizures Endocrine Medical History: Denies: Hx Hyperthyroidism, Hx Hypothyroidism Renal/ Medical History: Denies: Hx End Stage Renal Disease, Hx Kidney Stones, Hx Ovarian Cysts, Hx Peritoneal Dialysis, Hx Pelvic Inflammatory Disease Malignancy Medical History: Reports: Hx Breast Cancer - In remission. Denies: Hx Cervical Cancer, Hx Lung Cancer, Hx Ovarian Cancer GI Medical History: Reports: Hx Gastroesophageal Reflux Disease. Denies: Hx Crohn's Disease, Hx Hiatal Hernia, Hx Irritable Bowel, Hx Liver Failure, Hx Pancreatitis, Hx Ulcer Musculoskeletal Medical History: Reports Hx Arthritis - generalized, Denies Hx Fibromyalgia, Denies Hx Muscular Dystrophy Psychiatric Medical History: Denies: Hx Bipolar Disorder, Hx Depression, Hx Post Traumatic Stress Disorder Traumatic Medical History: Denies: Hx Fractures Past Surgical History: Reports: Hx Appendectomy, Hx Cholecystectomy, Hx Hysterectomy, Hx Mastectomy - bilateral, Hx Orthopedic Surgery - bilateral knees, L hip. Denies: Hx Bowel Surgery, Hx Section, Hx Colostomy, Hx Coronary Artery Bypass Graft, Hx Gastric Bypass Surgery, Hx Herniorrhaphy, Hx Pacemaker, Hx Tonsillectomy, Hx Tubal Ligation - Immunizations Hx Diphtheria, Pertussis, Tetanus Vaccination: Yes Hx Pneumococcal Vaccination: 03/24/16 Review of Systems - Review of Systems Constitutional: denies: No symptoms reported, See HPI, Chills, Diaphoresis, Fever, Malaise, Weakness, Other, Weight gain, Weight loss, Recent illness Musculoskeletal: Joint pain. denies: No symptoms reported, See HPI, Back pain, Gout, Joint swelling, Muscle pain, Muscle stiffness, Neck pain, Deformity, Leg swelling, Ankle swelling, Other Physical Exam - Vital signs Vitals: Temp Pulse Resp BP Pulse Ox 98.1 F 76 18 151/75 H 95 06/24/19 11:25 06/24/19 11:25 06/24/19 11:25 06/24/19 11:25 06/24/19 11:25 Notes: PHYSICAL EXAMINATION: GENERAL: Well-appearing, well-nourished and in no acute distress. HEAD: Atraumatic, normocephalic. EYES: Pupils equal round and reactive to light, extraocular movements intact, sclera anicteric, conjunctiva are normal. ENT: nares patent, oropharynx clear without exudates. Moist mucous membranes. NECK: Normal range of motion, supple without lymphadenopathy LUNGS: Breath sounds clear to auscultation bilaterally and equal. No wheezes rales or rhonchi. HEART: Regular rate and rhythm without murmurs ABDOMEN: Soft, nontender, normoactive bowel sounds. No guarding, no rebound. No masses appreciated. EXTREMITIES: Normal range of motion, no pitting or edema. No cyanosis. Pain over the left greater trochanter however almost full flexion extension in the hip and internal rotation. NEUROLOGICAL: No focal neurological deficits. Moves all extremities spontaneously and on command. PSYCH: Normal mood, normal affect. SKIN: Warm, Dry, normal turgor, no rashes or lesions noted. Course - Vital Signs Vital signs: Temp Pulse Resp BP Pulse Ox 98.1 F 76 18 151/75 H 95 06/24/19 11:25 06/24/19 11:25 06/24/19 11:25 06/24/19 11:25 06/24/19 11:25 - Diagnostic Test Radiology reviewed: Image reviewed Radiology results interpreted by me: 06/24/19 12:41 Left hip shows no fracture dislocation hardware in place without dislocation. Pelvis is intact without fracture she does have some scoliosis in the lower LS spine. Discharge - Discharge Clinical Impression: Chronic left hip pain Condition: Good Disposition: HOME, SELF-CARE Additional Instructions: Moist soaks for 20 minutes 3 times a day. Use pain medicine as not needed return if worse follow-up orthopedics Prescriptions: Hydrocodone/Acetaminophen [[place]el[place] 5-325 mg Tablet] 1 tab PO Q8 PRN #10 tablet PRN Reason: Pain Scale Of 3 Referrals: ANA PALOMO MD [Primary Care Provider] - Follow up as needed
[2019-06-24 13:36] VITALS: BP 152/74
--- NOTE | 2019-06-24 13:37 | RADIOLOGY REPORT (SQ) ---
EXAM DESCRIPTION: HIP LEFT AP/LATERAL COMPLETED DATE/TIME: 06/24/2019 12:40 pm REASON FOR STUDY: pain with ambulating/standing COMPARISON: None. NUMBER OF VIEWS: Two views. TECHNIQUE: AP pelvis and additional frog-leg view of the left hip. LIMITATIONS: None. FINDINGS: MINERALIZATION: Normal. LEFT HIP: Intact prosthesis. RIGHT HIP: No fracture or dislocation. No worrisome bone lesions. PUBIS AND ISCHIUM: No fracture. PELVIS: No fracture. Postoperative deformity in the right iliac crest. SACRUM: No fracture or dislocation. No worrisome bone lesions. LOWER LUMBAR SPINE: No fracture or dislocation. No worrisome bone lesions. Degenerative disc disease . SOFT TISSUES: No findings. OTHER: No other significant finding. IMPRESSION: INTACT LEFT HIP PROSTHESIS. SURGICAL CHANGES. NO RADIOGRAPHIC EVIDENCE OF ACUTE INJURY. TECHNICAL DOCUMENTATION: JOB ID: [id number] [employer]- All Rights Reserved Reading location - IP/workstation name: [email or web address]
== END 2019-06-24 14:02 | disposition home or self-care (01) ==
LOC: ER 11:25
DX: G89.29 Other chronic pain (principal); M25.552 Pain in left hip; E78.00 Pure hypercholesterolemia, unspecified; Z90.49 Acquired absence of other specified parts of digestive tract; Z90.710 Acquired absence of both cervix and uterus
CPT/HCPCS: 99283